=== PATIENT | male | born 1960 | race Caucasian/White ===

== ENCOUNTER → 2016-06-25 | Outpatient (CLI) | payer OTHER ==
[~2016-06-25] MED LIST: ALLOPURINOL 30300 M1 PO; ATENOLOL 50 MG50 M1 PO; AVODART0.5 MG PO; BACTRIM DS TAB1 EACH PO; CLOTRIMAZOLE-BE15 GM TP; COUMADIN 5 MG TA5 M1 PO; DOXYCYCLINE 10100 M1 PO; DOXYCYCLINE 10100 MG PO; HYDROCODON-ACE1 EAC2 PO; JALYN 0.5-0.41 EACH; JALYN 0.5-0.41 EACH PO; KEFLEX500 MG PO; LEVAQUIN 750 M750 MG PO; LOVENOX SC; NEURONTIN 300300 M1 PO; NEURONTIN600 MG PO; NORCO 5-325 TA1 EACH PO; PERCOCET PO; PREDNISONE 20 M20 MG PO; RIFAMPIN 300 M300 M1 PO; TENORMIN50 MG PO
== END ==
LOC: HYPER 06:57
DX: I87.313 Chronic venous hypertension (idiopathic) with ulcer of bilateral lower extremity (principal); L97.811 Non-pressure chronic ulcer of other part of right lower leg limited to breakdown of skin; L97.821 Non-pressure chronic ulcer of other part of left lower leg limited to breakdown of skin; I10 Essential (primary) hypertension; I73.9 Peripheral vascular disease, unspecified; Z87.891 Personal history of nicotine dependence

== ENCOUNTER → 2016-09-29 | Outpatient (CLI) | payer OTHER | LOC: HYPER 07:10 | DX: I87.313 Chronic venous hypertension (idiopathic) with ulcer of bilateral lower extremity (principal); L97.812 Non-pressure chronic ulcer of other part of right lower leg with fat layer exposed; L97.822 Non-pressure chronic ulcer of other part of left lower leg with fat layer exposed; M10.9 Gout, unspecified; I73.9 Peripheral vascular disease, unspecified; Z87.891 Personal history of nicotine dependence; Z72.89 Other problems related to lifestyle ==

== ENCOUNTER → 2016-10-27 | Outpatient (CLI) | payer OTHER | LOC: HYPER 07:08 | DX: I87.313 Chronic venous hypertension (idiopathic) with ulcer of bilateral lower extremity (principal); L97.511 Non-pressure chronic ulcer of other part of right foot limited to breakdown of skin; L97.312 Non-pressure chronic ulcer of right ankle with fat layer exposed; L97.322 Non-pressure chronic ulcer of left ankle with fat layer exposed; I73.9 Peripheral vascular disease, unspecified; M10.9 Gout, unspecified; Z87.891 Personal history of nicotine dependence; Z72.89 Other problems related to lifestyle ==

== ENCOUNTER → 2016-11-24 | Outpatient (CLI) | payer OTHER | LOC: HYPER 07:14 | DX: I87.313 Chronic venous hypertension (idiopathic) with ulcer of bilateral lower extremity (principal); L97.812 Non-pressure chronic ulcer of other part of right lower leg with fat layer exposed; L97.822 Non-pressure chronic ulcer of other part of left lower leg with fat layer exposed; M10.9 Gout, unspecified; Z87.891 Personal history of nicotine dependence; Z72.89 Other problems related to lifestyle ==

== ENCOUNTER → 2016-12-23 | Outpatient (CLI) | payer OTHER | LOC: HYPER 07:01 | DX: I87.313 Chronic venous hypertension (idiopathic) with ulcer of bilateral lower extremity (principal); L97.311 Non-pressure chronic ulcer of right ankle limited to breakdown of skin; L97.321 Non-pressure chronic ulcer of left ankle limited to breakdown of skin; L97.812 Non-pressure chronic ulcer of other part of right lower leg with fat layer exposed; L97.822 Non-pressure chronic ulcer of other part of left lower leg with fat layer exposed; I73.9 Peripheral vascular disease, unspecified; F41.9 Anxiety disorder, unspecified; Z87.891 Personal history of nicotine dependence; Z72.89 Other problems related to lifestyle ==

== ENCOUNTER → 2017-01-20 | Outpatient (CLI) | payer OTHER | LOC: HYPER 07:12 | DX: I87.313 Chronic venous hypertension (idiopathic) with ulcer of bilateral lower extremity (principal); L97.312 Non-pressure chronic ulcer of right ankle with fat layer exposed; L97.322 Non-pressure chronic ulcer of left ankle with fat layer exposed; L97.511 Non-pressure chronic ulcer of other part of right foot limited to breakdown of skin; I73.9 Peripheral vascular disease, unspecified; Z87.891 Personal history of nicotine dependence; Z72.89 Other problems related to lifestyle ==

== ENCOUNTER → 2017-02-24 | Outpatient (CLI) | payer OTHER | LOC: HYPER 06:47 | DX: I87.313 Chronic venous hypertension (idiopathic) with ulcer of bilateral lower extremity (principal); L97.812 Non-pressure chronic ulcer of other part of right lower leg with fat layer exposed; L97.822 Non-pressure chronic ulcer of other part of left lower leg with fat layer exposed; I73.9 Peripheral vascular disease, unspecified; M10.9 Gout, unspecified; Z87.891 Personal history of nicotine dependence; Z72.89 Other problems related to lifestyle ==

== ENCOUNTER → 2017-03-10 | Outpatient (CLI) | payer OTHER | LOC: HYPER 07:05 | DX: I87.313 Chronic venous hypertension (idiopathic) with ulcer of bilateral lower extremity (principal); L97.312 Non-pressure chronic ulcer of right ankle with fat layer exposed; L97.322 Non-pressure chronic ulcer of left ankle with fat layer exposed; L97.511 Non-pressure chronic ulcer of other part of right foot limited to breakdown of skin; I73.9 Peripheral vascular disease, unspecified; Z87.891 Personal history of nicotine dependence; Z72.89 Other problems related to lifestyle ==

== ENCOUNTER → 2017-03-23 | Outpatient (CLI) | payer OTHER | LOC: HYPER 07:08 | DX: I87.313 Chronic venous hypertension (idiopathic) with ulcer of bilateral lower extremity (principal); L97.812 Non-pressure chronic ulcer of other part of right lower leg with fat layer exposed; L97.822 Non-pressure chronic ulcer of other part of left lower leg with fat layer exposed; Z87.891 Personal history of nicotine dependence ==

== ENCOUNTER → 2017-05-17 | Outpatient (CLI) | payer OTHER | LOC: HYPER 05-03 07:34 | DX: I87.313 Chronic venous hypertension (idiopathic) with ulcer of bilateral lower extremity (principal); L97.812 Non-pressure chronic ulcer of other part of right lower leg with fat layer exposed; L97.822 Non-pressure chronic ulcer of other part of left lower leg with fat layer exposed; I73.9 Peripheral vascular disease, unspecified; R60.0 Localized edema; Z87.891 Personal history of nicotine dependence; Z72.89 Other problems related to lifestyle ==

== ENCOUNTER → 2017-06-15 | Outpatient (CLI) | payer OTHER | LOC: HYPER 07:09 | DX: I87.313 Chronic venous hypertension (idiopathic) with ulcer of bilateral lower extremity (principal); L97.812 Non-pressure chronic ulcer of other part of right lower leg with fat layer exposed; L97.822 Non-pressure chronic ulcer of other part of left lower leg with fat layer exposed; I73.9 Peripheral vascular disease, unspecified; R60.0 Localized edema; Z87.891 Personal history of nicotine dependence; Z72.89 Other problems related to lifestyle ==

== ENCOUNTER 2017-07-03 01:15 | Emergency (ER) | payer OTHER ==
[~2017-07-03] VITALS: Ht 188 cm; Wt 131.5 kg
[2017-07-03 01:31] VITALS: BP 106/54
[2017-07-03] MEDS ORDERED: HYDROCHLOROTHIA25 M2 PO (01:36)
[2017-07-03] MEDS ORDERED: COUMADIN 5 MG TA5 M1 PO (01:36)
[2017-07-03] MEDS ORDERED: OXYCODONE HCL 55 MG PO (01:36)
[2017-07-03] MEDS ORDERED: IRON325 M1 PO (01:37)
[2017-07-03 05:00] VITALS: BP 142/78
[2018-02-24] MEDS ORDERED: OXYCONTIN15 MG PO (02:25)
== END 2017-07-03 08:00 | disposition home or self-care (01) ==
LOC: ER 01:15 → EROBS 04:21 → ER 08:00
DX: M23.8X1 Other internal derangements of right knee (principal); I87.8 Other specified disorders of veins; I73.9 Peripheral vascular disease, unspecified; I83.029 Varicose veins of left lower extremity with ulcer of unspecified site; I10 Essential (primary) hypertension; M10.9 Gout, unspecified; F17.210 Nicotine dependence, cigarettes, uncomplicated; Z86.718 Personal history of other venous thrombosis and embolism; Z96.641 Presence of right artificial hip joint

== ENCOUNTER → 2017-07-12 | Outpatient (CLI) | payer OTHER ==
[~2017-07-12] MED LIST changes: +HYDROCHLOROTHIA25 M2 PO; +IRON325 M1 PO; +OXYCODONE HCL 55 MG PO; +OXYCONTIN15 MG PO
== END ==
LOC: HYPER 07:02
DX: I87.313 Chronic venous hypertension (idiopathic) with ulcer of bilateral lower extremity (principal); L97.311 Non-pressure chronic ulcer of right ankle limited to breakdown of skin; L97.321 Non-pressure chronic ulcer of left ankle limited to breakdown of skin; L97.511 Non-pressure chronic ulcer of other part of right foot limited to breakdown of skin; I73.9 Peripheral vascular disease, unspecified; R60.0 Localized edema; Z87.891 Personal history of nicotine dependence; Z72.89 Other problems related to lifestyle

== ENCOUNTER → 2017-08-06 | Outpatient (CLI) | payer OTHER | LOC: HYPER 07:58 | DX: I87.313 Chronic venous hypertension (idiopathic) with ulcer of bilateral lower extremity (principal); L97.822 Non-pressure chronic ulcer of other part of left lower leg with fat layer exposed; L97.812 Non-pressure chronic ulcer of other part of right lower leg with fat layer exposed; L97.521 Non-pressure chronic ulcer of other part of left foot limited to breakdown of skin; L97.511 Non-pressure chronic ulcer of other part of right foot limited to breakdown of skin; I73.9 Peripheral vascular disease, unspecified; Z87.891 Personal history of nicotine dependence; Z72.89 Other problems related to lifestyle ==

== ENCOUNTER 2017-08-23 12:10 | Emergency (ER) | payer OTHER ==
[~2017-08-23] VITALS: Ht 188 cm; Wt 136.1 kg
[~2017-08-23 12:10] MED LIST changes: -OXYCONTIN15 MG PO
[2017-08-23 14:02] LABS: HEMATOCRIT 41.3 % (42.0-52.0); HEMOGLOBIN 12.7 gm/dL (14.0-18.0); MCH 20.7 pg (26.0-34.0); MCHC 30.7 g/dL (28.0-37.0); MCV 67.5 fL (80.0-100.0); PLATELET COUNT 336 thou/uL (150-400); RBC 6.12 mil/uL (4.50-6.00); WBC 7.2 thou/uL (4.0-11.0)
[2017-08-23 14:08] LABS: CALCIUM 9.3 mg/dL (8.5-10.1); CREATININE 1.1 mg/dL (0.7-1.3); POTASSIUM 3.4 mmol/L (3.5-5.1)
[2017-08-23] MEDS ORDERED: NEURONTIN600 MG PO (14:09)
[2017-08-23] MEDS ORDERED: COUMADIN 5 MG TA5 M1 PO (14:12)
[2017-08-23 14:14] LABS: ALBUMIN 3.1 g/dL (3.4-5.0); TOTAL BILIRUBIN 0.3 mg/dL (<0.1-1.0); TOTAL PROTEIN 8.1 g/dL (6.4-8.2)
[2017-08-23 14:25] LABS: ANISOCYTOSIS 1+; MICROCYTES 2+; PLATELET ESTIMATE NORMAL
[2017-08-23 14:30] LABS: INR 4.1; PROTIME 41.5 Seconds (9.3-11.4)
[2017-08-23 16:09] VITALS: BP 127/78
[2018-02-24] MEDS ORDERED: OXYCONTIN15 MG PO (02:25)
== END 2017-08-23 16:12 | disposition home or self-care (01) ==
LOC: ER 12:10
PROVIDERS: Nurse Practitioner Family
DX: I83.015 Varicose veins of right lower extremity with ulcer other part of foot (principal); I83.025 Varicose veins of left lower extremity with ulcer other part of foot; I10 Essential (primary) hypertension; M10.9 Gout, unspecified; Z86.718 Personal history of other venous thrombosis and embolism; F17.210 Nicotine dependence, cigarettes, uncomplicated

== ENCOUNTER 2019-01-04 16:42 | Emergency (ER) | payer OTHER ==
[~2019-01-04] VITALS: Ht 188 cm; Wt 131.5 kg
[~2019-01-04 16:42] MED LIST changes: +OXYCONTIN15 MG PO
[2019-01-04 16:47] VITALS: BP 141/88
== END 2019-01-04 17:09 | disposition home or self-care (01) ==
LOC: ER 16:42
DX: M79.604 Pain in right leg (principal); M79.605 Pain in left leg; Z76.0 Encounter for issue of repeat prescription; F17.210 Nicotine dependence, cigarettes, uncomplicated; I10 Essential (primary) hypertension; M10.9 Gout, unspecified; Z96.641 Presence of right artificial hip joint; Z86.718 Personal history of other venous thrombosis and embolism